=== PATIENT | male | born 1965 | race Caucasian/White ===

== ENCOUNTER 2017-01-26 06:32 | Emergency (ER) | payer OTHER ==
--- NOTE | ~2017-01-26 | ER ---
ADMIT: 01/26/2017 RM/LOC: ER [facility] MR#: [id number] [address] [id number] AIDAN PIERRE [address] [place] [address] Emergency Room Report SEX: M AGE: 51 : 1965 DATE: 01/26/2017 ADDENDUM: The patient was checked out to me by Dr. La with results of CT head and C-spine pending as well as lumbar spine x-rays. The CT head and C- spine showed nothing acute. The x-rays of the lumbar spine showed nothing acute but did show an old coccygeal fracture. The patient was having some generalized soreness in his back and was given some Valium p.o. in the emergency department and discharged to home to use NSAIDs and Flexeril as needed for pain. DIAGNOSES: 1. Laceration lower lip. 2. Muscle strain. Rafal Wilson MD/ peggy JOB #: [id number] CC: Randy Velez MD, Attending Physician Shady Powell MD, Family Physician
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
== END 2017-01-26 08:02 | disposition home or self-care (01) ==
LOC: ER 06:32
PROC: 0CQ1XZZ Repair Lower Lip, External Approach (ICD-10-PCS; principal; 2017-01-26)
DX: S01.511A Laceration without foreign body of lip, initial encounter (principal); S39.012A Strain of muscle, fascia and tendon of lower back, initial encounter; I10 Essential (primary) hypertension; Z98.890 Other specified postprocedural states; Z23 Encounter for immunization; Z79.899 Other long term (current) drug therapy; V49.49XA Driver injured in collision with other motor vehicles in traffic accident, initial encounter